=== PATIENT | male | born 1990 | race Caucasian/White ===

== ENCOUNTER 2017-05-31 11:48 | Emergency (ER) | payer MEDICARE, MEDICAID ==
[2017-05-31 14:19] LABS: BASOPHILS 0.4 % (0-2); EOSINOPHILS 1.4 % (0-7); HEMOGLOBIN 14.1 g/dL (13.5-17.5); IMMATURE GRANULOCYTES 0.1 % (0-5); LYMPHOCYTES 34.3 % (15-50); MCH 29.7 pg (26.0-34.0); MCHC 34.4 g/dL (31.0-37.0); MCV 86.5 fL (80.0-100.0); MEAN PLATELET VOLUME 9.9 fL (7.4-10.4); MONOCYTES 7.6 % (2-11); NEUTROPHILS 56.2 % (40-80); RBC 4.74 10x6/uL (4.20-6.10); RDW 12.7 % (11.5-14.5)
[2017-05-31 14:24] LABS: PLATELET COUNT 334 10x3/uL (130-400)
[2017-05-31 14:41] LABS: ALBUMIN 3.5 g/dL (3.4-5.0); ALKALINE PHOSPHATASE 69 U/L (46-116); ALT (SGPT) 31 U/L (10-68); BILIRUBIN - TOTAL 0.28 mg/dL (0.2-1.3); CALC OSMOLALITY 272 mosm/kg (275-300); CALCIUM 8.9 mg/dL (8.5-10.1); CARBON DIOXIDE 26.8 mmol/L (21.0-32.0); CHLORIDE - SERUM 105 mmol/L (98-107); CREATININE - SERUM 0.7 mg/dL (0.6-1.3); GLUCOSE 89 mg/dL (74-106); POTASSIUM - SERUM 3.6 mmol/L (3.5-5.1); SODIUM 138 mmol/L (136-145); UREA NITROGEN 7 mg/dL (7-18); eGFR NON AFRICAN AMERICAN > 90 mL/min (90-120)
[2017-05-31 14:52] LABS: APPEARANCE CLEAR (CLEAR); BILIRUBIN NEGATIVE (NEGATIVE); COLOR STRAW (YELLOW); GLUCOSE NEGATIVE (NEGATIVE); KETONE NEGATIVE (NEGATIVE); NITRITE NEGATIVE (NEGATIVE); PROTEIN NEGATIVE (NEGATIVE); UROBILINOGEN NORMAL (NORMAL)
== END 2017-05-31 17:12 | disposition home or self-care (01) ==
LOC: D.ER 11:48
PROVIDERS: Nurse Practitioner Family
DX: R10.9 Unspecified abdominal pain (principal)

== ENCOUNTER 2017-05-31 20:46 | Emergency (ER) | payer MEDICARE, MEDICAID ==
[2017-05-31 21:40] LABS: UDS - AMPHET NEGATIVE QUAL (NEGATIVE); UDS - BARB NEGATIVE QUAL (NEGATIVE); UDS - BENZO NEGATIVE QUAL (NEGATIVE); UDS - COCAINE NEGATIVE QUAL (NEGATIVE); UDS - OPIATE NEGATIVE QUAL (NEGATIVE); UDS - PCP NEGATIVE QUAL (NEGATIVE); UDS - THC NEGATIVE QUAL (NEGATIVE)
[2017-05-31 23:03] LABS: APPEARANCE CLEAR (CLEAR); BILIRUBIN NEGATIVE (NEGATIVE); COLOR YELLOW (YELLOW); GLUCOSE NEGATIVE (NEGATIVE); KETONE NEGATIVE (NEGATIVE); NITRITE NEGATIVE (NEGATIVE); PROTEIN NEGATIVE (NEGATIVE); SPECIFIC GRAVITY 1.025 (1.005-1.020); UROBILINOGEN NORMAL (NORMAL)
== END 2017-06-01 00:34 | disposition home or self-care (01) ==
LOC: D.ER 20:46
PROVIDERS: Emergency Medicine
DX: N34.2 Other urethritis (principal)

== ENCOUNTER 2020-02-02 11:18 | Emergency (ER) | payer MEDICARE ==
[~2020-02-02] VITALS: Ht 175.3 cm; Wt 61.4 kg
[2020-02-02 11:34] VITALS: Ht 175.3 cm; Wt 61.4 kg
[2020-02-02] MEDS ORDERED: IBUPROFEN800 MG PO (11:36)
[2020-02-02] MEDS ORDERED: ULTRAM50 MG PO (12:47)
[2020-02-02 13:27] VITALS: BP 120/71
== END 2020-02-02 13:28 | disposition home or self-care (01) ==
LOC: D.ER 11:18
DX: M23.91 Unspecified internal derangement of right knee (principal); S93.401A Sprain of unspecified ligament of right ankle, initial encounter

== ENCOUNTER → 2020-02-13 14:32 | Outpatient (CLI) | payer MEDICARE ==
[2020-02-02 11:34] VITALS: BMI 19.9
[~2020-02-13 14:32] MED LIST: IBUPROFEN800 MG PO; ULTRAM50 MG PO
== END | disposition home or self-care (01) ==
LOC: D.MRI 14:32
PROVIDERS: ATTEND Orthopaedic Surgery
DX: M25.561 Pain in right knee (principal)